=== PATIENT | male | born 1980 | race Caucasian/White ===

== ENCOUNTER 2022-11-18 09:18 | Emergency (ER) | payer OTHER, SELFPAY ==
[2022-11-18 09:22] VITALS: BP 178/116; PULSE 110; RESP 16; TEMP 36.2; O2SAT 100; BMI 26.6
--- NOTE | 2022-11-18 10:12 | ED.GENADULT ---
HPI - General Adult General Chief complaint: Alcohol/Intoxication Stated complaint: ETOH Time Seen by Provider: 11/18/22 09:54 History of Present Illness HPI narrative: 41-year-old man brought by EMS to the emergency department with concern of hallucinations. Is currently in alcohol treatment inpatient. Day 5 of sobriety. Does have a history of withdrawal but really only comprised of shakes and nausea. Has never had seizure. No hallucinations prior related to alcohol withdrawal. He does take trazodone to help him with sleep. This hallucination was upon waking at about 2:00 a.m. this last night/morning. He describes a [place] scene and his current roommate being present. He was being spoken to by his mates father. It was not a frightening episode. Lasted about 25-30 minutes. Further questioning does seem that he had a similar event as a child. [place] had come in [place] there is this brief period of hallucination. Otherwise is not having any headaches. No typical visual disturbances. No personal or family history of psychotic type mental health difficulties. Himself struggles with anxiety in does have hypertension. Alcoholism. Related Data Home Medications Medication Instructions Recorded Confirmed amlodipine .ROUTE 11/18/22 losartan .ROUTE 11/18/22 sertraline .ROUTE 11/18/22 trazodone .ROUTE 11/18/22 Allergies Allergy/AdvReac Type Severity Reaction Status Date / Time No Known Drug Allergies Allergy Verified 11/18/22 09:31 Review of Systems Status of ROS: Reports: 10 or more systems reviewed and unremarkable except as noted in History and below PFSH PFS Social History Smoking Status: Never smoker Do you use any of these nicotine containing products: None Second hand tobacco smoke exposure: No How often do you have a drink containing alcohol: never How often do you have six or more drinks on one occasion: Never AUDIT-C Alcohol total score: 0 Non-prescribed substance use: denies use service: No Exam Narrative: Exam Narrative: Very pleasant. Engaged. Subtly tremulous. Generally karen complexion. Breathing easily. Fully alert. Cranial nerves 2-12 intact. There is no nystagmus. Lungs are clear. Heart is elevated to tachycardic in a regular rhythm. Extremities are without edema. Moving all extremities without difficulty. There are well perfused. Const: Vital Signs, click to edit/add: Vital Signs - 24 hr 11/18/22 09:22 Temperature 97.1 F L Pulse Rate [Left P ulse Oximeter] 110 H Respiratory Rate 16 Blood Pressure [Le ft Upper Arm] 178/116 H Pulse Oximetry 100 Oxygen Delivery Me thod Room Air Documenting provider has reviewed patient's vital signs: yes Course Vital Signs Vital signs: Initial Vital Signs Temperature 97.1 F L 11/18/22 09:22 Temperature Source Temporal Artery Scan 11/18/22 09:22 Pulse Rate 110 H 11/18/22 09:22 Pulse Rhythm 11/18/22 09:22 Pulse Strength 3+ Normal 11/18/22 09:22 Respiratory Rate 16 11/18/22 09:22 Blood Pressure 178/116 H 11/18/22 09:22 Blood Pressure Mean 136 11/18/22 09:22 Blood Pressure Position Sitting 11/18/22 09:22 Pulse Oximetry 100 11/18/22 09:22 Oxygen Delivery Method 11/18/22 09:22 Vital Signs Temperature 97.1 F L 11/18/22 09:22 Pulse Rate 110 H 11/18/22 09:22 Respiratory Rate 16 11/18/22 09:22 Blood Pressure 178/116 H 11/18/22 09:22 Pulse Oximetry 100 11/18/22 09:22 Oxygen Delivery Method 11/18/22 09:22 Temperature 97.1 F L 11/18/22 09:22 Pulse Rate 110 H 11/18/22 09:22 Respiratory Rate 16 11/18/22 09:22 Blood Pressure 178/116 H 11/18/22 09:22 Pulse Oximetry 100 11/18/22 09:22 Oxygen Delivery Method 11/18/22 09:22 Medical Decision Making MDM Narrative Medical decision making narrative: Initially elevated blood pressure and pulse would attribute somewhat to alcohol withdrawal. Focused and attending and does not appear to be demonstrating any hallucinations here. He has not been actively vomiting or having diarrhea. No persistent headaches or other neurological findings to suggest intracranial abnormality otherwise. Puzzling and what appears to be rather isolated event that I think would be difficult to characterize at this time. Appears generally well. See discharge thoughts Discharge Plan Discharge Clinical Impression: Hallucination, History of alcohol abuse Patient Disposition: Home, Self-Care Condition: Stable Additional Instructions: Was a pleasure talking with you morning. I am not sure it is clear to me why you had this hallucination. Could be a combination of dream/sleep-wake state, sleeping pills, some degree of alcohol withdrawal. You seem quite well at this time. This is a relatively isolated happening. I do not feel this warrants further workup at this time. Would offer you encouragement though toward your continued efforts at sobriety. I would recheck your blood pressure and pulse again in 2-3 days. Prescriptions: No Action sertraline .ROUTE trazodone .ROUTE amlodipine .ROUTE losartan .ROUTE Stand Alone Forms: [employer] Info Instructions
== END 2022-11-18 10:23 | disposition home or self-care (01) ==
LOC: ED 10:14
PROVIDERS: Emergency Provider Family Medicine
DX: R44.3 Hallucinations, unspecified (principal); F10.230 Alcohol dependence with withdrawal, uncomplicated
CPT/HCPCS: 99282; 99283